=== PATIENT | female | born 1955 | race Caucasian/White ===

== ENCOUNTER → 2017-11-15 | Day surgery (SDC) | payer OTHER ==
[~2017-11-15] VITALS: Ht 152.4 cm; Wt 73.5 kg
[~2017-11-15] MED LIST: ATORVASTATIN CA10 M1 PO; COZAAR25 M1 PO; METOPROLOL SUCC25 M1 PO; NORVASC2.5 M1 PO; OMEPRAZOLE20 M2 PO; XARELTO20 M2 PO
--- NOTE | 2017-11-15 10:21 | Cons- Medical ---
Nixon Marie 11/15/17 1020: General Information and HPI Consulting Request Date of Consult: 11/15/17 Requested By: Sarah WYATT,Mark Wilks Reason for Consult: Shortness of breath Source of Information: patient, old records Exam Limitations: no limitations History of Present Illness: 62 year old woman with pmh significant for PAF s/p MAXINE cardioversion jun 2016, status post ablation October 2015 and July 2016, hypertension, ? history of asthma in the past, elective repair of right shoulder in [address] [facility] admitted to same-day surgery today for left shoulder arthroscopy and rotator cuff repair. Medicine was consulted as patient has been having some cough. Bedside. On interview patient stated that her cough is chronic and is of one-year duration. At baseline she does get short of breath after one flight of stairs which are steep that she walks when she goes to [employer]. She is independent with all of her daily activities and sleeps on one pillow. She reports no issues with anesthesia in the past and has been relatively healthy since her ablation in 2016. Denies fever, chills, upper respiratory symptoms, sputum production, wheezing, chest pain, palpitations, bilateral lower extremity swelling. Allergies/Medications Allergies: Coded Allergies: No Known Allergies (11/12/17) Home Med List: Atorvastatin Calcium 10 MG TABLET 1 TAB PO DAILY cholesterol (Reported) Losartan Potassium (Cozaar) 25 MG TABLET 0.5 TAB PO DAILY BP (Reported) Metoprolol Succinate 25 MG TAB 1 TAB PO DAILY HEART/BP (Reported) Omeprazole 20 MG CAPSULE.DR 1 CAP PO DAILY GERD (Reported) Rivaroxaban (Xarelto) 20 MG TABLET 1 TAB PO DAILY BLOOD THINNER (Reported) with food Review of Systems Review of Systems Constitutional: Denies: see HPI. Past History Medical History Cardiovascular: AFIB, hypertension Respiratory: asthma Surgical History Surgical History: RIGHT SHOULDER REPAIR Exam & Diagnostic Data Last 24 Hrs of Vital Signs/I&O SEE BELOW Physical Exam General Appearance: well developed/nourished, no apparent distress, alert, awake Head: atraumatic Eyes: Bilateral: normal appearance, PERRL, EOMI, pale conjunctivae, abnormal EOM, lid inflammation, photophobia, corneal abrasion, other. Neck: normal inspection, supple Respiratory: normal breath sounds, lungs clear Cardiovascular: irregularly irregular Gastrointestinal: normal bowel sounds, soft, non-tender Extremities: no edema Last 24 Hrs of Labs/Kyrie: see below Assessment/Plan Assessment/Plan 62 year old woman with pmh significant for PAF s/p MAXINE cardioversion jun 2016, status post ablation October 2015 and July 2016 currently on Xaralto, bicuspid aortic valve, mild aortic stenosis, hypertension, ? history of asthma in the past, elective repair of right shoulder in [address] [facility] admitted to same-day surgery today for left shoulder arthroscopy and rotator cuff repair, medicine consulted for preop evaluation. Currently afebrile with blood pressure 154/80, saturating 97% on room air, heart rate 107. Recent labs done November 12, 2017 reveal no leukocytosis, normal platelet count normal H&H, sodium 144, potassium 3.5, BUN 25, creatinine 0.5, PT 10.7, INR 0.98. on review of her medical records from [facility]: Chest x-ray done September 27, 2017 was unremarkable except for mild cardiomegaly Patient underwent an echo stress 10/02/2017 which showed normal LVEF at 5560% negative for symptoms, EKG or ischemic echo criteria EKG done today shows: irregular complexes with p waves, likely sinus with multiple PACs, [id number] Problem list: Chronic cough PAF on Xaralto HTN Chronic cough No symptoms or clinical symptoms suggestive of acute infection Repeat CXR done today showed no acute pathology. Currently stable and should not be a contraindication for her surgery. PAF currently in sinus rhythm with PACs, HR in 100s Pre-op evaluation done with her flatwork feeder in [facility], METS >4 Potassium is 3.5, will replete as ideally should be around 4 RCRI score 0 Per patient, Xarelto has been held for the past two weeks Acceptable cardiac risk for proceeding for the surgery, will obtain cardio consult prior to surgery as well. Xaralto should be restarted as soon as surgery clears DVT PPx none for today, if she is admitted then we will need to readdress full code Thank you for your consult Consult Acknowledgment - Thank you for your consult request. Amalia Torres MD 11/15/17 1213: Assessment/Plan Consult Acknowledgment - Thank you for your consult request. Attending Review Statement Attending Statement Attending Statement: examined this patient, discuss w/resident/PA/WORK TICKET DISTRIBUTOR, agreed w/resident/PA/WORK TICKET DISTRIBUTOR, reviewed EMR data (avail), discussed with nursing, discussed with case mgmt, reviewed images, amended to note Attending Assessment/Plan: 62 y/o F with pmh sig for PAF s/p MAXINE cardioversion jun 2016, status post ablation October 2015 and July 2016, hypertension, ? history of asthma in the past , elective repair of right shoulder in 2013, scheduled to have left shoulder surgery elective repair done today. Anesthesiologist was concerned as patient was having cough. Medicine was consulted for the evaluation for this cough. Patient had been cleared from her flatwork feeder in [facility]. She had an echo done September 2017 which showed good ejection fraction. She does complain of some shortness of breath at times. She claims that cold weather makes this cough worse. She denies any sputum production, fevers or chills. She claims that this is a dry cough and has been told by her doctor that it is a chronic cough. She denies any chest pain. Her EKG is abnormal and that's different compared to her previous EKG. On Vitals; BP and HR slightly on higher side. Pt had not taken her antihypertensives this am. Labs from 11/12/17 reviewed. CBC wnl. Chemistries show slightly elevated Transaminases. coags wnl and UA neg. I reviewed her previous EKG echo results from her [facility] flatwork feeder. Assessment and recommendations: 62 y/o F with pmh sig for PAF s/p MAXINE cardioversion jun 2016, status post ablation October 2015 and July 2016, hypertension, ? history of asthma in the past , elective repair of right shoulder in 2013 here for elective right shoulder repair. Medical consult obtained for patient having cough. Upon review, we also found that her EKG was different than her previous EKGs that was done 2016. No records in the system but she did have EKG on her chart. We obtained a chest x-ray which was negative. We will also obtained a cardiology consult just to make sure that she is okay from cardiac standpoint for the surgery. Patient will need general anesthesia for the surgery according to the paperwork. She should be continued on her home medications afterwards. Cough itself is not a contraindication for any surgery at this time but will wait for the flatwork feeder to clear her.
--- NOTE | 2017-11-15 11:58 | RADIOLOGY REPORT ---
EXAMINATION: XR CHEST CLINICAL INFORMATION: Cough and shortness of breath. COMPARISON: None TECHNIQUE: 2 views of the chest were obtained. FINDINGS: Lungs are well expanded and clear; no pulmonary edema, focal consolidation or pleural effusion. Cardiac silhouette is mildly enlarged. The hilar contours are normal. Mild atherosclerotic calcification of the aortic arch. Mild, multilevel discovertebral degenerative changes of the thoracic spine. Mild-to moderate osteoarthrosis of acromioclavicular joints of both shoulders. IMPRESSION: 1. No acute findings; no evidence of pneumonia. 2. Mild cardiomegaly without pulmonary edema.
--- NOTE | 2017-11-15 12:08 | Cons- Cardiology ---
General Information and HPI Consulting Request Date of Consult: 11/15/17 Requested By: Mark Smith MD, V. Reason for Consult: Preoperative evaluation History of Present Illness: The patient is a pleasant 62-year-old female with history of paroxysmal atrial fibrillation who is a resident of [facility]. She presents for left shoulder arthroscopic surgery and rotator cuff repair. She is status post ablation 2 in 2015 and July 2016. She has history of hypertension and asthma. She was noted to have a cough which is chronic. She has mild shortness of breath which is chronic as well. She has had no chest pain. She reports good functional status. She exercises on an elliptical machine for 20 minutes per day. She is able to walk several miles without cardiac symptoms. No palpitations. No orthopnea. No lightheadedness or dizziness. No nausea or vomiting. She has not had any recurrence of her atrial fibrillation recently. She was cleared by her payroll coordinator in [facility] after a stress echo. The payroll coordinator per minute notes the chronic shortness of breath which she does not believe is secondary to a cardiac etiology. Allergies/Medications Allergies: Coded Allergies: No Known Allergies (11/12/17) Home Med List: Atorvastatin Calcium 10 MG TABLET 1 TAB PO DAILY cholesterol (Reported) Losartan Potassium (Cozaar) 25 MG TABLET 0.5 TAB PO DAILY BP (Reported) Metoprolol Succinate 25 MG TAB 1 TAB PO DAILY HEART/BP (Reported) Omeprazole 20 MG CAPSULE.DR 1 CAP PO DAILY GERD (Reported) Rivaroxaban (Xarelto) 20 MG TABLET 1 TAB PO DAILY BLOOD THINNER (Reported) with food Review of Systems Review of Systems: No fever. No chills. No rash. No tremor. No melena. All other systems were reviewed, and were noted to be negative. Past History Medical History Cardiovascular: AFIB, hypertension Respiratory: asthma Surgical History Surgical History: none Family History Relations & Conditions If Any: MOTHER Heart disease Exam & Diagnostic Data Physical Exam: Gen: The patient is in no acute distress HEENT: Normal nose, ears, and oropharynx. Pupils equal bilaterally. Conjunctiva normal. Neck: Supple with no JVD, no masses, and no thyromegaly Lungs: Clear to auscultation with normal respiratory effort Heart: RRR, S1, S2, no murmurs. No peripheral edema, 2+ pulses in the lower extremities bilaterally Abdomen: Soft, nontender, no masses. No hepatomegaly. No splenomegaly Extremities: No clubbing or cyanosis. Normal muscle strength in the upper and lower extremities Skin: Normal skin turgor with no skin ulcers or lesions noted. Neuro: Cranial nerves intact. Sensation intact Psych: Alert and oriented x 3 with appropriate affect Labs/Kyrie Results: Labs 11/12/17: Glucose 96, BUN 25, creatinine 0.6, sodium 144, potassium 3.5, chloride 108, CO2 25 Diagnostic Data EKG Results EKG tracings and apparently reviewed, and reveals normal sinus rhythm at 80 with frequent premature atrial contractions CXR Results CXR: Negarive Other Results Echocardiogram 10/05/17: Normal LV size and systolic function. Mildly dilated left atrium. Possible bicuspid aortic valve. Mild aortic stenosis. RV systolic pressure 40 mmHg. LVEF 6065%. Stress echo 10/02/17: Negative Assessment/Plan Assessment/Plan The patient is a 62-year-old female with history of paroxysmal atrial for ablation status post ablation 2 who presents for surgery. She had a recent stress echo which revealed no ischemia. Her recent echocardiogram revealed mild aortic stenosis with possible bicuspid aortic valve, normal ejection fraction, and left atrial enlargement. She has chronic shortness of breath and cough with her unchanged from her baseline. She describes excellent functional status, and she exercises frequent. She is noted on EKG to be in sinus rhythm with frequent premature atrial contractions. Her potassium is noted to be borderline low at 3.5. Recommendations: * Given that the patient is asymptomatic with good functional status and no ischemia on recent stress test, other cardiac risk for surgery is acceptable. She is cleared from a cardiac standpoint for the planned orthopedic surgery * With supplement potassium given the borderline low potassium and premature atrial contractions. * Xarelto has been held for surgery and should be restarted as soon as possible postoperatively. Consult Acknowledgment - Thank you for your consult request.
--- NOTE | 2017-11-15 14:45 | Operative Report ---
Operative/Inv Procedure Report Surgery Date: 11/15/17 Name of Procedure: Left shoulder arthroscopic surgery including rotator cuff tear repair acromioclavicular arthroplasty arthroscopic subacromial decompression anterior lysis of biceps tendon Pre-Operative Diagnosis: Internal derangement left shoulder Post-Operative Diagnosis: Rotator cuff tear biceps tendinopathy impingement and acromioclavicular arthritis Estimated Blood Loss: scant Surgeon/Ornament Setter: Sarah WYATT,Mark Stubbs M.D. Anesthesia: general endotracheal tube, block Operative/Procedure Note Note: Patient was brought to the operating room placed on the table in the beachchair position care was taken with the neck all acral prominences were padded exam under anesthesia was remarkable for mild general multidirectional instability Antibiotics were given proper timeout was performed sterile prep and drape was performed bony landmarks were marked Biceps tenolysis The biceps tendon was seen to have degenerative changes and tenosynovitis therefore ttenolysis was performed using motorized instrumentation and secured tenodesis Arthroscopic subacromial decompression She had a very prominent anteromedial acromial spur with an unfused acromial epiphysis we performed by planing acromioplasty right across this making it completely flat in both planes bony instruments were used for this Acromioclavicular arthroplasty We now performed a formal arthroscopic Leidy procedure resecting the entire distal aspect of the clavicle the outer 11 mm were taken Rotator cuff repair She had a huge retracted rotator cuff tear we removed all soft tissue from the juxta articular surface of the greater tuberosity down to punctate bleeding bone for healing bone quality was soft we placed a medial 5.5 triple anchor from [employer] absorbable we passed 3 horizontal mattresses using retrograde and anterograde instruments we tied these down and then did a double second row using 24.5 bio push locks we were very pleased with cuff contact pressures and stability at the conclusion Conclusion We removed all loose chips and bits we closed the portals with Monocryl dressing was applied she returned to recovery having tolerated the procedure well she'll be discharged home. She criteria she'll follow-up with Dr. Stubbs in [facility] the day after tomorrow
== END ==
LOC: SDA 04:38 → UNDOADMIN 04:38 → EDSTATUS 07:00 → STS 10:53
DX: M75.102 Unspecified rotator cuff tear or rupture of left shoulder, not specified as traumatic (principal); M75.22 Bicipital tendinitis, left shoulder; M13.812 Other specified arthritis, left shoulder; K21.9 Gastro-esophageal reflux disease without esophagitis; I10 Essential (primary) hypertension; I48.0 Paroxysmal atrial fibrillation; Z79.01 Long term (current) use of anticoagulants
CPT/HCPCS: SDA; 71046; 93005; 93010; J0171; J0690